=== PATIENT | female | born 1985 | race Hispanic/Latino ===

== ENCOUNTER 2019-11-01 04:37 | Emergency (ER) | payer SELFPAY ==
[2019-11-01] MEDS ORDERED: diphenhydrAMINE 50 MG/ML VIAL IV ONE (04:50)
[2019-11-01] MEDS ORDERED: FAMOTIDINE 20 MG TAB PO ONE (04:50)
--- NOTE | 2019-11-01 05:01 | Emergency Department Report ---
ED Allergic Reaction HPI - General Chief complaint: Allergic Reaction Stated complaint: ALLERGIC REACTION Time Seen by Provider: 11/01/19 04:43 Source: patient, EMS Mode of arrival: Stretcher Limitations: No Limitations - History of Present Illness Initial Comments: Ms. Lewis is a healthy 33 yo female with hx of PCOS and endometriosis who presents with allergic reaction to insect bite to left lower leg. She was asleep when she felt a sting. She then developed diffuse hives all over her body. No throat or lip swelling. No fainting. No chest pain. No dyspnea. Her right ear feels full. No previous hx of allergic reaction. No new foods, detergents, fragrances. She arrives via EMS. She received 25 mg diphenhydramine, 125 mg solumedrol en route. MD Complaint: allergic reaction, hives -: Sudden, This morning Exposure: insect bite Symptoms: rash, itching Severity: moderate Treatment Prior to Arrival: benadryl, steroids Previous Allergy History: none - Related Data Previous Rx's Medication Instructions Recorded Last Taken Type Diphenhydramine HCl [Complete 25 mg PO TID 4 Days #12 tablet 11/01/19 Unknown Rx Allergy TAB] EPINEPHrine [Epipen] 0.3 mg IJ ONCE PRN #1 auto.injct 11/01/19 Unknown Rx Famotidine [Acid Controller] 20 mg PO BID 4 Days #8 tablet 11/01/19 Unknown Rx predniSONE [Deltasone] 3 tab PO QDAY 4 Days #12 tab 11/01/19 Unknown Rx Allergies Allergy/AdvReac Type Severity Reaction Status Date / Time No Known Allergies Allergy Unverified 11/01/19 04:42 ED Review of Systems ROS: Stated complaint: ALLERGIC REACTION Other details as noted in HPI Comment: All other systems reviewed and negative Constitutional: denies: fever, malaise ENT: denies: ear pain Respiratory: denies: cough Cardiovascular: denies: chest pain ED Past Medical Hx - Past Medical History Previous Medical History?: Yes Additional medical history: Endometriosis, Polycystic ovarian syndrome - Surgical History Past Surgical History?: No - Social History Smoking Status: Former Smoker Substance Use Type: None - Medications Home Medications: Home Medications Medication Instructions Recorded Confirmed Last Taken Type Diphenhydramine HCl [Complete 25 mg PO TID 4 Days #12 tablet 11/01/19 Unknown Rx Allergy TAB] EPINEPHrine [Epipen] 0.3 mg IJ ONCE PRN #1 auto.injct 11/01/19 Unknown Rx Famotidine [Acid Controller] 20 mg PO BID 4 Days #8 tablet 11/01/19 Unknown Rx predniSONE [Deltasone] 3 tab PO QDAY 4 Days #12 tab 11/01/19 Unknown Rx ED Physical Exam - General Limitations: No Limitations General appearance: alert, in no apparent distress - Head Head exam: Present: atraumatic, normocephalic - Eye Eye exam: Present: normal appearance - ENT ENT exam: Present: mucous membranes moist - Neck Neck exam: Present: normal inspection - Respiratory Respiratory exam: Present: normal lung sounds bilaterally. Absent: respiratory distress, wheezes, rales, rhonchi - Cardiovascular Cardiovascular Exam: Present: regular rate, normal rhythm, normal heart sounds. Absent: systolic murmur, diastolic murmur, rubs, gallop - GI/Abdominal GI/Abdominal exam: Present: soft. Absent: distended, tenderness, guarding, rebound - Extremities Exam Extremities exam: Present: normal inspection - Back Exam Back exam: Present: normal inspection - Neurological Exam Neurological exam: Present: alert, oriented X3 - Psychiatric Psychiatric exam: Present: normal affect, normal mood - Skin Skin exam: Present: intact, rash, urticaria (diffuse from neck upper torso, 3 cm red patch lower left leg just above lateral ankle) ED Course Vital Signs 11/01/19 04:42 Temperature 97.9 F Pulse Rate 79 Respiratory 18 Rate Blood Pressure 118/68 O2 Sat by Pulse 100 Oximetry - Reevaluation(s) Reevaluation #1: 11/01/19 05:31 Upon reassessment, patient states that throat feels scratchy. Epinephrine ordered. ED Medical Decision Making - Medical Decision Making acute grade I anaphylaxis to insect venom: treated with diphenhydramine, famotidine and Solu-Medrol. No pulmonary, circulatory, GI involvement. No angioedema present Prescribed EpiPen, prednisone, Pepcid, Benadryl. Refer to senior product integrity engineer. Critical care attestation.: If time is entered above; I have spent that time in minutes in the direct care of this critically ill patient, excluding procedure time. ED Disposition Clinical Impression: Anaphylaxis due to insect venom, Acute allergic reaction Disposition: DC- TO HOME OR SELFCARE Is pt being admited?: No Does the pt Need Aspirin: No Condition: Stable Instructions: Insect Bite or Sting (ED), Anaphylaxis (ED) Prescriptions: Famotidine [Acid Controller] 20 mg PO BID 4 Days #8 tablet Diphenhydramine HCl [Complete Allergy TAB] 25 mg PO TID 4 Days #12 tablet predniSONE [Deltasone] 3 tab PO QDAY 4 Days #12 tab EPINEPHrine [Epipen] 0.3 mg IJ ONCE PRN #1 auto.injct PRN Reason: severe allergic reaction Referrals: TODD FAUSTIN MD [Referring] - 3-5 Days MARIAELENA DEAN MD [Referring] - 3-5 Days
[2019-11-01] MEDS ORDERED: EPINEPHrine/PF 1 MG/1 ML INJ SUB-Q ONE (05:30)
[2019-11-01 06:11] VITALS: BP 125/79
== END 2019-11-01 06:12 | disposition home or self-care (01) ==
LOC: ED 04:37
DX: S80.862A Insect bite (nonvenomous), left lower leg, initial encounter (principal); T78.2XXA Anaphylactic shock, unspecified, initial encounter; Z98.890 Other specified postprocedural states; Z79.899 Other long term (current) drug therapy; Z87.891 Personal history of nicotine dependence; W57.XXXA Bitten or stung by nonvenomous insect and other nonvenomous arthropods, initial encounter; Y93.89 Activity, other specified; Y92.89 Other specified places as the place of occurrence of the external cause; Y99.8 Other external cause status
CPT/HCPCS: 96372; 96374; 99284; J0171; J1200